=== PATIENT | female | born 1945 | race Caucasian/White ===

== ENCOUNTER 2017-04-08 07:38 | Emergency (ER) | payer MEDICARE ==
[~2017-04-08] VITALS: Ht 162.6 cm; Wt 93.4 kg
[~2017-04-08 07:38] MED LIST: AMLODIPINE BESYL5 MG PO; ASPIRIN325 MG PO; BACLOFEN10 MG PO; CARTIA XT120 MG PO; COREG12.5 MG PO; DOXYCYCLINE HY100 MG PO; GABAPENTIN100 MG PO; GLIPIZIDE5 MG PO; LASIX40 MG PO; LIPITOR20 MG PO; LOSARTAN POTASS25 MG PO; PEPCID20 MG PO; VENLAFAXINE H37.5 M2 PO; WARFARIN SODIUM5 MG PO
[2017-04-08] MEDS ORDERED: SODIUM CHLORIDE 0.9% 500ML 500 ML IV ONE ×2 (08:15→09:45)
[2017-04-08] MEDS ORDERED: ALBUTEROL/IPRATROPIUM 3 ML NEB NEB ONE (08:15)
[2017-04-08] MEDS ORDERED: DIATRIZOATE MEGL/DIATRIZOA SOD 30 ML BTL PO ONE (08:30)
[2017-04-08 08:41] VITALS: BP 134/96
[2017-04-08 08:46] LABS: BASOPHILS % 0.3 % (0.0-1.0); EOSINOPHILS # (AUTO) 0.1 (0.0-0.4); EOSINOPHILS % 0.5 % (0.0-6.0); HEMATOCRIT 35.3 % (34.2-44.1); HEMOGLOBIN 11.4 g/dL (12.0-16.0); LYMPHOCYTES # (AUTO) 0.8 (1.0-3.2); LYMPHOCYTES % 8.8 % (18.0-39.1); MEAN CORPUSCULAR HGB CONC 32.3 g/dL (31-35); MEAN CORPUSCULAR VOLUME 92.9 fL (81-99); MONOCYTES # (AUTO) 0.8 (0.2-0.8); MONOCYTES % 8.9 % (4.4-11.3); NEUTROPHILS # (AUTO) 7.6 (2.1-6.9); NEUTROPHILS % 81.2 % (38.7-80.0); PLATELET COUNT 181 x10e3/uL (140-360); RED CELL DISTRIBUTION WIDTH 14.1 % (11.7-14.4)
[2017-04-08 08:50] LABS: INR 2.39; PROTHROMBIN TIME 27.4 seconds (11.9-14.5)
[2017-04-08 08:51] LABS: PARTIAL THROMBOPLASTIN TIME 61.2 seconds (23.8-35.5)
[2017-04-08 08:57] LABS: ALBUMIN/GLOBULIN RATIO 0.7 (0.8-2.0); ANION GAP 16.2 mmol/L (8-16); CREATININE, SERUM 1.84 mg/dL (0.57-1.11); POTASSIUM 4.2 mmol/L (3.5-5.1)
[2017-04-08 09:03] LABS: TROPONIN I 0.034 ng/mL (0-0.300)
[2017-04-08 09:11] VITALS: BP 107/79
--- NOTE | 2017-04-08 10:07 | Diagnostic Imaging Report ---
PROCEDURE: X-RAY CHEST, TWO VIEWS COMPARISON: Patients [facility], DX, CHEST SINGLE (PORTABLE), 10/28/2016, 13:03. INDICATIONS: NAUSEA, VOMITING, COUGH FINDINGS: LUNGS: Bibasilar pulmonary opacities likely secondary to atelectasis. PLEURA: Small right pleural effusion. HEART \T\ MEDIASTINUM: The heart remains enlarged. BONES \T\ SOFT TISSUES: There are small bilateral cervical ribs. CONCLUSION: 1. Cardiomegaly with small right pleural effusion. 2. Bibasilar atelectasis. Noé Houser D.O. Dictated by: Noé Houser D.O. on 04/08/2017 at 10:15 Electronically approved by: Noé Houser D.O. on 04/08/2017 at 10:15
--- NOTE | 2017-04-08 10:33 | Diagnostic Imaging Report ---
PROCEDURE: CT ABDOMEN AND PELVIS WITHOUT CONTRAST TECHNIQUE: The abdomen and pelvis were scanned utilizing a multidetector helical scanner from the diaphragm to the lesser trochanter after the oral administration of Gastrografin intermixed with water. No IV contrast was administered. Coronal and sagittal multiplanar reformations were obtained. DLP: 751.77 mGy-cm COMPARISON: None. INDICATIONS: DIFFUSE ABDOMINAL PAIN FINDINGS: ABSENCE OF INTRAVENOUS CONTRAST DECREASES SENSITIVITY FOR DETECTION OF FOCAL LESIONS AND VASCULAR PATHOLOGY. LOWER THORAX: Bibasilar atelectasis, right pleural effusion and mitral annulus calcification is noted. HEPATOBILIARY: No focal hepatic lesions. No biliary ductal dilatation. SPLEEN: No splenomegaly. PANCREAS: No focal masses or ductal dilatation. ADRENALS: No adrenal nodules. KIDNEYS/URETERS: There is no hydronephrosis. Hypodense interpolar mass in the lower right kidney likely represents a bilobe cyst but difficult to conclusively evaluate without IV contrast. PELVIC ORGANS/BLADDER: Unremarkable. PERITONEUM / RETROPERITONEUM: No free air or fluid. LYMPH NODES: No lymphadenopathy. VESSELS: Unremarkable. GI TRACT: No distention or wall thickening. Scattered diverticula without evidence of diverticulitis. Narrowing of the lumen in a segment of the ascending colon likely represents peristalsis but comparison to colonoscopy is suggested. BONES AND SOFT TISSUES: Lumbar scoliosis and degenerative changes. Fat containing umbilical hernia. IMPRESSION: 1. No acute abnormality within the abdomen or pelvis. 2. Scattered diverticulosis without evidence of diverticulitis. 3. Luminal narrowing of the ascending colon/hepatic flexure region may represent peristalsis but correlation with colonoscopy suggested. 4. Indeterminate right interpolar renal lesion likely is a cyst. Noé Houser D.O. Dictated by: Noé Houser D.O. on 04/08/2017 at 10:40 Electronically approved by: Noé Houser D.O. on 04/08/2017 at 10:40
[2017-04-08] MEDS: MORPHINE SULFATE 4 MG/ML SYR IV ONE ×2 (10:39→11:25)
[2017-04-08] MEDS: ONDANSETRON HCL INJ 2 MG/ML VIAL IV STA ×2 (10:39→11:25)
[2017-04-08] MEDS ORDERED: MORPHINE SULFATE 2 MG/ML SYR ONE (11:29)
[2017-04-08] MEDS ORDERED: ONDANSETRON HCL INJ 2 MG/ML VIAL ONE (11:30)
[2017-04-08] MEDS ORDERED: ALBUTEROL/IPRATROPIUM 3 ML NEB ONE (11:31)
[2017-04-08] MEDS ORDERED: SODIUM CHLORIDE 0.9% 1000ML 1,000 ML IV SCH ×2 (11:41→20:17)
[2017-04-08] MEDS ORDERED: ONDANSETRON HCL INJ 2 MG/ML VIAL IV PRN (11:45)
[2017-04-08] MEDS ORDERED: DEXTROSE 50% SYRINGE 50 ML IV PRN ×2 (11:45→14:30)
[2017-04-08] MEDS ORDERED: INSULIN DETEMIR 100 UNIT/ML PEN SQ ONE ×2 (11:45→14:45)
[2017-04-08] MEDS ORDERED: MORPHINE SULFATE 2 MG/ML SYR IV PRN (11:45)
[2017-04-08] MEDS ORDERED: SODIUM CHLORIDE 0.9% 1000ML 500 ML IV SCH (12:45)
[2017-04-08] MEDS ORDERED: BACLOFEN 10 MG TAB PO PRN (14:30)
[2017-04-08 15:40] VITALS: BP 123/103
[2017-04-08] MEDS: CARVEDILOL 12.5 MG TAB PO SCH ×2 (15:58→17:36)
[2017-04-08] MEDS: LOSARTAN POTASSIUM 25 MG TAB PO SCH (16:00)
[2017-04-08] MEDS: GABAPENTIN 100 MG CAP PO SCH (16:01)
[2017-04-08] MEDS: GLIPIZIDE 5 MG TAB PO SCH (16:01)
[2017-04-08] MEDS: AMLODIPINE BESYLATE 5 MG TAB PO SCH (16:01)
[2017-04-08] MEDS: FAMOTIDINE 20 MG TAB PO SCH (16:01)
--- NOTE | 2017-04-08 16:12 | History and Physical ---
PRIMARY CARE PROVIDER: At the [facility]. CHIEF COMPLAINT: Nausea, vomiting, diarrhea times 2 days. HISTORY OF PRESENT ILLNESS: Ms. Ovalle is a 72-year-old lady presenting with epigastric abdominal pain that has moved down into the lower abdomen over the last 24 hours with nausea, vomiting and diarrhea for 2 days. However, the patient feels much better now. The abdominal pain went away after she received a dose of morphine. It has not come back, and she has no nausea, vomiting or diarrhea now. REVIEW OF SYSTEMS: She denies fever, chills or weight loss. She denies sinus congestion or sore throat. She denies chest pain or palpitations. She denies shortness of breath, wheezing or cough. She has had abdominal pain with nausea, vomiting and diarrhea as noted. She denies dysuria or flank pain. She denies rash or pruritus. She denies joint pain or swelling. She denies bleeding or bruising. She denies headache, vertigo or loss of consciousness. She denies depression, agitation, homicidal or suicidal ideation. PAST MEDICAL HISTORY: Significant for longstanding hypertension, type-2 diabetes, hyperlipidemia, chronic atrial fibrillation, chronic diastolic congestive heart failure, irritable bowel syndrome, and chronic kidney disease, stage 4. MEDICATIONS: Her regular medications include: 1. Aspirin 81 mg daily. 2. Lipitor 40 mg at bedtime. 3. Celexa 40 mg at bedtime. 4. Plavix 75 mg daily. 5. Hydralazine 50 mg 3 times a day. 6. Imdur 30 mg twice a day. Her current medications include: 1. Norvasc 5 mg daily. 2. Aspirin 81 mg daily. 3. Lipitor 40 mg at bedtime. 4. Baclofen 10 mg 3 times a day as needed. 5. Carvedilol 25 mg twice daily. 6. Pepcid 20 mg daily. 7. Lasix 40 mg daily. 8. Gabapentin 200 mg 3 times a day. 9. Glipizide 10 mg daily. 10. Losartan 25 mg daily. 11. Venlafaxine 75 mg daily. 12. Coumadin 5 mg daily. SURGICAL HISTORY: She has a history of hysterectomy and tonsillectomy. She has had bilateral knee replacements. ALLERGIES: SHE HAS NO KNOWN DRUG ALLERGIES. FAMILY HISTORY: Significant for hypertension and diabetes. SOCIAL HISTORY: The patient is . Chinese is her primary language. She does not smoke, drink or use illegal drugs. She is generally independently functioning. PHYSICAL EXAMINATION PSYCHIATRIC: She is alert and oriented times 3 with normal mood and affect. CONSTITUTIONAL: She has a normal body habitus. She is in no acute distress. VITAL SIGNS: Blood pressure initially on presentation 185/120, currently 133/94. Pulse initially 142, currently 141. Respiratory rate 18. O2 sat 98%. Temperature 98.6. HEENT: Her head is atraumatic. Eyes are anicteric with clear conjunctivae. Ears and nares are without erythema or discharge. Oropharynx is clear. NECK: Supple with no mass or thyromegaly. LYMPHATIC SYSTEM: She has no palpable cervical, axillary or inguinal adenopathy. CARDIOVASCULAR: Her heart has an irregularly irregular rhythm without murmur or extra heart sound. She has no peripheral edema. She has weak dorsal pedal pulses. RESPIRATORY: Lungs are clear to auscultation and percussion with normal respiratory effort. GASTROINTESTINAL: Abdomen is soft without organomegaly, masses or tenderness. She has normal bowel sounds present. CUTANEOUS: Skin is warm and dry to touch with no rash or skin breakdown. MUSCULOSKELETAL: Her joints are in normal alignment without erythema or swelling. She has no calf tenderness. NEUROLOGIC: Exam is nonfocal with intact cranial nerves and no motor or sensory deficits. DIAGNOSTIC STUDIES: Chest x-ray shows cardiomegaly and a slight right effusion and some bibasilar atelectasis. CT scan of the abdomen shows no acute disease. It does show some diverticulosis without evidence of diverticulitis and some narrowing of the ascending colon, which may just be due to peristalsis but may require further evaluation. She had an echocardiogram done here in October of this year that showed left ventricular hypertrophy and ejection fraction of 55% to 60%. Carotid Dopplers were negative. Her chemistry profile shows normal electrolytes, CO2 21, creatinine 1.84 and BUN 38 for a GFR of 27. Anion gap of 16.2. Glucose is 308. Renal function is the same baseline that it was 6 months ago. Transaminases, bilirubin and alk phos are normal. CBC shows a white count of 9.37 with 81% neutrophils and 9% lymphocytes. Hemoglobin 11.4, hematocrit 35.3 and platelet count 181,000. Her pro time is 27.4 for an INR of 2.39. PTT is 61.2. Lactic acid is 13.0, which is normal. BNP is 1197.3. Troponin is 0.034. IMPRESSION AND PLAN 1. Acute gastroenteritis. The patient has received IV fluids. Will admit for observation. She is asymptomatic now. Will advance her diet. If she feels better, she can go home tomorrow. Will continue her regular medications and start Reglan before meals for possible diabetic gastroparesis. 2. Hypertension complicated by coronary artery disease, chronic diastolic heart failure and chronic kidney disease, stage 4. The patient will continue on Norvasc, Coreg, losartan, Lasix, Lipitor and aspirin. 3. Type-2 diabetes complicated by chronic kidney disease, stage 4. Patient received 1 dose of Levemir for the sugar of 308. Will continue with her glipizide 10 mg daily and will add sliding-scale insulin for glycemic control. 4. Chronic atrial fibrillation. The patient has a rapid ventricular response. Will continue on her Coreg and Coumadin. 5. For prophylaxis, the patient is on Coumadin for stroke and DVT prophylaxis and Pepcid for GI prophylaxis. Job#: [id number]
[2017-04-08 16:29] VITALS: BP 136/92
[2017-04-08] MEDS ORDERED: INSULIN REGULAR, HUMAN 100 UNIT/1 ML 3ML VIAL SQ SCH (16:30)
[2017-04-08] MEDS ORDERED: METOCLOPRAMIDE HCL 10 MG TAB PO SCH (16:30)
[2017-04-08] MEDS: VENLAFAXINE HCL 75 MG CAPCR PO SCH (17:36)
[2017-04-08] MEDS ORDERED: METOPROLOL TARTRATE INJ 1 MG/ML VIAL IV PRN (17:45)
[2017-04-08 18:29] VITALS: BP 92/63
[2017-04-08] MEDS ORDERED: ATORVASTATIN 20 MG TAB PO SCH (21:00)
[2017-04-09 06:24] LABS: BASOPHILS % 0.5 % (0.0-1.0); EOSINOPHILS # (AUTO) 0.3 (0.0-0.4); EOSINOPHILS % 4.5 % (0.0-6.0); HEMATOCRIT 28.9 % (34.2-44.1); LYMPHOCYTES # (AUTO) 1.1 (1.0-3.2); LYMPHOCYTES % 17.8 % (18.0-39.1); MEAN CORPUSCULAR HEMOGLOBIN 30.6 pg (28-32); MEAN CORPUSCULAR HGB CONC 31.1 g/dL (31-35); MEAN CORPUSCULAR VOLUME 98.3 fL (81-99); MONOCYTES # (AUTO) 0.7 (0.2-0.8); MONOCYTES % 10.2 % (4.4-11.3); NEUTROPHILS # (AUTO) 4.3 (2.1-6.9); NEUTROPHILS % 66.5 % (38.7-80.0); PLATELET COUNT 153 x10e3/uL (140-360); RED BLOOD COUNT 2.94 x10e6/uL (3.6-5.1); RED CELL DISTRIBUTION WIDTH 14.6 % (11.7-14.4)
[2017-04-09 06:42] LABS: INR 2.82; PROTHROMBIN TIME 31.2 seconds (11.9-14.5)
[2017-04-09 06:49] LABS: ANION GAP 10.9 mmol/L (8-16); CALCIUM 7.4 mg/dL (8.4-10.2); CREATININE, SERUM 1.99 mg/dL (0.57-1.11); POTASSIUM 3.9 mmol/L (3.5-5.1)
[2017-04-09 07:13] LABS: THYROID STIMULATING HORMONE 1.249 uIU/mL (0.350-4.940)
[2017-04-09] MEDS: INSULIN REGULAR, HUMAN 100 UNIT/1 ML 3ML VIAL SQ SCH ×3 (08:36→12:00)
[2017-04-09] MEDS ORDERED: VENLAFAXINE HCL PO SCH (09:00)
[2017-04-09] MEDS ORDERED: VENLAFAXINE HCL 75 MG CAPCR PO SCH (09:00)
[2017-04-09] MEDS ORDERED: FUROSEMIDE 40 MG TAB PO SCH (09:00)
[2017-04-09] MEDS ORDERED: ASPIRIN 81 MG CHEW TAB PO SCH (09:00)
[2017-04-09] MEDS: FAMOTIDINE 20 MG TAB PO SCH (09:30)
[2017-04-09] MEDS: CARVEDILOL 12.5 MG TAB PO SCH (09:30)
[2017-04-09] MEDS: LOSARTAN POTASSIUM 25 MG TAB PO SCH (09:30)
[2017-04-09] MEDS: GLIPIZIDE 5 MG TAB PO SCH (09:30)
[2017-04-09] MEDS: VENLAFAXINE HCL 75 MG CAPCR PO SCH (09:30)
[2017-04-09] MEDS: AMLODIPINE BESYLATE 5 MG TAB PO SCH (09:30)
[2017-04-09] MEDS: GABAPENTIN 100 MG CAP PO SCH ×2 (09:30)
[2017-04-09 09:47] LABS: INR 2.57
[2017-04-09] MEDS ORDERED: METOCLOPRAMIDE10 MG PO (15:06)
[2017-04-09] MEDS ORDERED: HUMULIN R100 UNIT/2 SQ (15:06)
[2017-04-09 15:19] VITALS: BP 121/92
[2017-04-09] MEDS ORDERED: WARFARIN SOD 5 MG TAB PO SCH (17:00)
--- NOTE | 2017-04-11 11:03 | Discharge Summary ---
ADMITTING DIAGNOSES 1. Acute gastroenteritis. 2. Hypertension. 3. Type 2 diabetes. 4. Chronic kidney disease stage 4. 5. Atrial fibrillation. DISCHARGED DIAGNOSES 1. Acute gastroenteritis. 2. Hypertension. 3. Type 2 diabetes. 4. Chronic kidney disease stage 4. 5. Atrial fibrillation. HISTORY: Patient has a history of hypertension, type 2 diabetes, hyperlipidemia, chronic AFib, chronic diastolic CHF, irritable bowel syndrome, and CKD 4. HOSPITAL COURSE: A 72-year-old female presented with epigastric abdominal pain that moved down into her lower abdomen over the last 24 hours. She had nausea, vomiting, and diarrhea for 2 days; however, the patient feels better on admission. The abdominal pain went away after she received a dose of morphine. During the stay, the pain did not come back and the nausea, vomiting and diarrhea has resolved. On admission, she received IV fluids and her diet was advanced. At the time of discharge, she was tolerating her diet with no nausea or pain. She was started on Reglan for possible diabetic gastroparesis. Hypertension was controlled on home medicines. Type 2 diabetes controlled on glipizide and added a sliding scale insulin low dose. AFib, patient will continue on Coreg and Coumadin and followup with cardiology as discussed. On day of discharge, the patient's heart rate was in the 60 and 70 range most of the day. WBC on discharge was 6.39, hemoglobin of 9, hematocrit of 28.9. INR of 2.57. Sodium of 146, . I encouraged the patient to drink a little more fluids over the next couple of days and she agreed. Creatinine of 1.99. GFR of 25. Blood cultures were pending. CAT scan of abdomen showed no acute abnormality within the abdomen or pelvis. Scattered diverticulosis without evidence of diverticulitis. Patient is to follow up with primary care in 1 to 2 weeks, cardiology as discussed for AFib and Coumadin dosing. Dictated by: Sharlene Greene NP ROSSY DAILEY MD Job#: [id number] PAT
== END 2017-04-09 16:15 | disposition home or self-care (01) ==
LOC: ER 07:38 → UNDOADMIN 11:41 → ERHOLD 11:41 → UNDOADMOB 12:34 → ERHOLD 12:34 → EDBEDREQTM 21:18 → EDBEDREQSVC 21:18
DX: R10.13 Epigastric pain (principal); R00.0 Tachycardia, unspecified; I10 Essential (primary) hypertension; E11.9 Type 2 diabetes mellitus without complications; E78.5 Hyperlipidemia, unspecified; I48.91 Unspecified atrial fibrillation; I50.9 Heart failure, unspecified
CPT/HCPCS: 36415 ×2; 71020; 74176; 80048; 80053; 82010; 82948 ×2; 83605; 83880; 84443; 84484; 85025 ×2; 85610 ×2; 85730; 87040; 93041; 99284; J2270; J2405; J7030; J7040